=== PATIENT | female | born 1995 | race Caucasian/White ===

== ENCOUNTER 2024-12-15 09:37 | Emergency (ER) | payer BC, SELFPAY ==
[2024-12-15 10:30] VITALS: BP 120/77; PULSE 114; RESP 21; TEMP 36.8; O2SAT 100; BMI 28.1
--- NOTE | 2024-12-15 11:03 | ED_ITS ---
Discharge Plan Disposition Patient Disposition: Home, Self-Care Condition: Good Prescriptions Prescriptions: New benzonatate 100 mg capsule 100 mg PO TID PRN (Reason: cough) Qty: 30 0RF amoxicillin-pot clavulanate 875-125 mg Tablet 1 tab PO Q12H Qty: 20 0RF albuterol sulfate 90 mcg/actuation HFA aerosol inhaler 2 puff inhalation Q6H PRN (Reason: shortness of breath or wheezing) Qty: 8.5 0RF methylprednisolone [Medrol (Nicholas)] 4 mg tablets,dose pack See Rx Instructions .Route .COMPLEX 6 Days Qty: 21 0RF Rx Instructions: taper pack; guaifenesin [Mucinex] 600 mg tablet extended release 12hr 600 mg PO BID PRN (Reason: congestion) Qty: 10 0RF No Action sertraline 100 mg tablet 100 mg PO DAILY Patient Comments: TAKE 1 TABLET BY MOUTH ONCE DAILY Wegovy 2.4 mg/0.75 mL pen injector 2.4 mg SQ DAILY Patient Comments: INJECT 2.4 MG UNDER THE SKIN INTO THE APPROPRIATE AREA DIRECTED 1 (ONE) TIME PER WEEK. Referrals Follow up/Referrals: Samira Gaffney MD [Primary Care Provider] - See instructions Activity Restrictions/Add. Instructions Additional Instructions/Restrictions: * Start antibiotic today. Be sure to complete entire prescription even if feeling better * Monitor temp. Tylenol every 4 hours as needed and / or ibuprofen every 6 hours as needed ( As long as your primary care physician has told you that it ok to take both. For fever/aches/pains ER if no less than 101 despite Tylenol or Motrin * Humidifier/vaporizer or hot steamy shower * Inhaler every 4-6 hours as needed like we discussed. If unsure how to use it, ask pharmacist to demonstrate how. Should help open airways and improve cough, wheezing, and shortness of breath * Mucinex during the day for your cough and cough suppressant only at night. Be sure to drink lots of water. Insurance may not cover a prescriptions for mucinex. Might be cheaper to get 400mg tablets and take 2 tablet in the morning, mid-day and evening with lots of water. *Tessalon Perles will not cause drowsiness but use at bedtime to help stop cough so that you may get some rest. *Start steroid today. Helps with inflammation therefore, cough and wheezing. Follow directions on the package. Reviewed side effects. Patient reports taking them before. Follow up IMMEDIATELY for new or worsening of symptoms OR no noticeable improvement over the next 48-72 hours. 911 immediately for any life threatening symptoms such as chest pain or difficulty breathing Clinical Impressions Clinical Impression: Sinusitis, Bronchitis Stand Alone Forms Stand Alone Forms: Work/School Release Instructions Patient Instructions: Acute Bronchitis, DI for Sinusitis Print Language Print Language: Niuean Discharge ED Provider: Cindy Germain [facility] [place] HPI General Stated complaint: congestion, cough Mode of Arrival: Ambulatory Source of Information: Patient Limitations: No Limitations Time Seen by Provider: 12/15/24 11:03 Description of Symptoms (Recalled from Triage Doc. by RN): PATIENT C/O CHEST CONGESTION, WHEEZING, COUGH, EAR PAIN, AND BODY ACHES THAT STARTED MONDAY NIGHT HEENT Symptoms (Recalled from RN notes): Yes Resp Symptoms (Recalled from RN notes): Yes Skin Symptoms (Recalled from RN notes): No MS Symptoms (Recalled from RN notes): No Functional Status (Recalled from RN notes): WNL History of Present Illness Provider Complaint: Patient states that she started feeling bad on Mon States that she has been having bilateral ear pain and pressure, sinus congestion with pain and pressure, cough States last night she had a little wheezing feels like she may have bronchitis Related Data Home Medications ?Medication ?Instructions ?Recorded ?Confirmed semaglutide (weight loss) 2.4 2.4 mg SQ DAILY 12/15/24 12/15/24 mg/0.75 mL subcutaneous pen injector (Wegovy) sertraline 100 mg tablet 100 mg PO DAILY 12/15/24 12/15/24 Previous Rx's ?Medication ?Instructions ?Recorded albuterol sulfate 90 mcg/actuation 2 puff inhalation Q6H PRN 12/15/24 aerosol inhaler shortness of breath or wheezing #8.5 grams amoxicillin 875 mg-potassium 1 tab PO Q12H #20 tabs 12/15/24 clavulanate 125 mg tablet benzonatate 100 mg capsule 100 mg PO TID PRN cough #30 caps 12/15/24 guaifenesin 600 mg tablet, 600 mg PO BID PRN congestion #10 12/15/24 extended release 12 hr (Mucinex) tabs methylprednisolone 4 mg tablets in See Rx Instructions .Route 12/15/24 a dose pack (Medrol (Nicholas)) .COMPLEX 6 days #21 tabs Allergies Allergy/AdvReac Type Severity Reaction Status Date / Time No Known Allergies Allergy Verified 12/15/24 10:42 Worker's Comp Is this a Worker's Comp case?: No [facility] Disclaimer: The information contained in this section may have been updated after the patient was seen, as this information can be updated by other users. Medical History (Updated 12/15/24 @ 11:09 by Cindy Germain APRN) Anxiety Surgical History (Updated 12/15/24 @ 10:44 by Maida Adkins RN) History of tonsillectomy History of section Social History Smoking Status: Unknown if ever smoked alcohol intake: never current occupational status: employed Travel in the last 8 weeks: None ROS Obtained: Yes All systems reviewed & no additional complaints except as documented and Yes Systems reviewed as appropriate & no additional complaints except as documented Constitutional Constitutional: Reports system reviewed and no additional complaints, except as documented, Reports as per HPI, Denies fever(s) and Reports headache(s) ENT Ears, Nose, Mouth, and Throat: Reports system reviewed and no additional complaints, except as documented, Reports as per HPI, Reports otalgia, Reports headache(s), Reports sinus pain and Reports sinus pressure Cardiovascular Cardiovascular: Reports system reviewed and no additional complaints, except as documented and Reports as per HPI Respiratory Respiratory: Reports system reviewed and no additional complaints, except as documented, Reports as per HPI, Reports chest congestion, Reports cough and Reports wheezing (at times) Neurologic Neurologic: Reports headache(s) Allergic/Immunologic Allergic/Immunologic: Reports wheezing (at times) Physical Exam General General appearance: alert and in no apparent distress ENT ENT exam: Present mucous membranes moist Expanded ENT Exam TM/Canal exam: Left TM: erythema and Bilateral TM: bulging Nose exam: Present sinus tenderness Throat exam: Present other (PND noted) Respiratory Respiratory exam: Present normal lung sounds bilaterally; Absent respiratory distress or wheezes Cardiovascular Cardiovascular exam: Present regular rate, normal rhythm and normal heart sounds Abdominal Exam Abdominal exam: Present soft and normal bowel sounds; Absent distention or tenderness Neurological Exam Neurological exam: Present alert, oriented X3 and normal gait Medical Decision Making Medical Records Screening: Per USPSTF and CDC recommendations, given the prevalence of disease in our region, it is our hospital?s policy to screen for HIV and viral Hepatitis for all patients aged 18 and over and those with ongoing risk factors. Aayush Inquiry Pt receiving controlled substance: No Aayush was queried for this patient: No Vital Signs: 12/15/24 10:30 Temperature 98.2 F Temperature Source Oral Pulse Rate [Left Brachial] 114 H Respiratory Rate 21 Blood Pressure [Left Arm] 120/77 Blood Pressure Mean [Left Arm] 91 Blood Pressure Source [Left Arm] Automatic Cuff Blood Pressure Position [Left Arm] Sitting 02 Sat by Pulse Oximetry 100 Oxygen Delivery Method Room Air
[2024-12-15 11:13] VITALS: BP 120/77; PULSE 114; RESP 21; TEMP 36.8; O2SAT 100
== END 2024-12-15 11:18 | disposition home or self-care (01) ==
PROVIDERS: Emergency Provider Nurse Practitioner; PCP Family Medicine
DX: J20.9 Acute bronchitis, unspecified (principal); J01.90 Acute sinusitis, unspecified
CPT/HCPCS: 99213; G0381